=== PATIENT | female | born 1935 | race Caucasian/White ===

== ENCOUNTER 2017-05-10 07:18 | Emergency (ER) | payer OTHER ==
[~2017-05-10] VITALS: Ht 160 cm; Wt 81.7 kg
[~2017-05-10 07:18] MED LIST: Bactrim Ds Tab1 EACH PO; CEPH500 PO; DOCU100 PO; Diclofenac Sod2.5 ML; GLIP10 PO; INSULANPEN SC; LOSA25 PO; METF500 PO; POLTRIOPSO BOTHEYES; PRAV20 PO; PRED1SU BOTHEYES; PRIM50 PO; PROP80ER PO; Zofran8 MG PO
[2017-05-10] MEDS ORDERED: GLIP10 (07:40)
[2017-05-10 08:50] LABS: BASOPHILS ABSOLUTE AUTO 0.02 K/mm3 (0.00-0.23); BASOPHILS PERCENT AUTO 0 % (0-2); EOSINOPHILS PERCENT AUTO 0 % (0-6); Hematocrit 41.7 % (33.0-51.0); Hemoglobin 13.4 g/dL (11.5-16.0); IMMATURE GRAN ABSOLUTE AUTO 0.03 K/mm3 (0.00-0.10); IMMATURE GRAN PERCENT AUTO 1 % (0-1); LYMPHOCYTES PERCENT AUTO 16 % (21-46); MONOCYTES ABSOLUTE AUTO 1.07 K/mm3 (0.16-1.47); MONOCYTES PERCENT AUTO 19 % (4-13); Mean Corpuscular HGB 28.6 pg (26.0-34.0); Mean Corpuscular HGB Conc 32.1 g/dL (31.5-36.5); Mean Corpuscular Volume 89 fL (80-100); Mean Platelet Volume 10.4 fL (9.1-12.4); NEUTROPHILS PERCENT AUTO 64 % (41-73); Platelet Count 205 K/mm3 (150-400); RDW Coefficient Variation 14.4 % (11.7-14.2); RDW Standard Deviation 47.1 fL (35.1-46.3); Red Blood Cell Count 4.68 M/mm3 (3.80-5.20); White Blood Cell Count 5.62 K/mm3 (4.00-11.30)
[2017-05-10 09:04] LABS: Alanine Aminotransfer (ALT/SGP 27 U/L (12-78); Albumin, Blood 3.1 g/dL (3.4-5.0); Albumin/Globulin Ratio 0.7 (0.8-1.8); Alk Phos 86 U/L (50-136); Anion Gap 9 mmol/L (6-16); Aspartate Aminotrans (AST/SGOT 33 U/L (12-37); Bilirubin, Total 0.4 mg/dL (0.1-1.0); Blood Urea Nitrogen 23 mg/dL (8-24); Bun/Creatinine Ratio 20.5 (12.0-20.0); CO2, Blood 26 mmol/L (21-32); Calcium, Blood 8.5 mg/dL (8.5-10.1); Chloride, Blood 101 mmol/L (98-108); Creatinine, Blood 1.12 mg/dL (0.40-1.00); Globulin, Blood 4.2 g/dL (2.2-4.0); Glomerular Filtration Rate 50 (60-); Glucose, Blood 145 mg/dL (70-99); Potassium, Blood 3.9 mmol/L (3.5-5.5); Sodium, Blood 136 mmol/L (136-145); Total Protein, Blood 7.3 g/dL (6.4-8.2); Troponin I <0.015 ng/mL (0.000-0.040)
[2017-05-10 09:23] LABS: Influenza A Negative (NEGATIVE); Influenza B Positive (NEGATIVE)
== END 2017-05-10 12:58 | disposition home or self-care (01) ==
LOC: ER 07:18
PROVIDERS: Emergency Medicine
DX: J10.1 Influenza due to other identified influenza virus with other respiratory manifestations (principal); E86.0 Dehydration; R55 Syncope and collapse; E11.9 Type 2 diabetes mellitus without complications; I10 Essential (primary) hypertension; Z90.710 Acquired absence of both cervix and uterus; Z90.49 Acquired absence of other specified parts of digestive tract; Z90.89 Acquired absence of other organs; Z79.899 Other long term (current) drug therapy; Z79.4 Long term (current) use of insulin
CPT/HCPCS: 71046; 80053; 84484; 85025; 87804; 93005; 93010; 96360; 99284; J7030

== ENCOUNTER → 2019-06-03 | Outpatient (CLI) | payer OTHER ==
[~2019-06-03] MED LIST changes: +GLIP10
== END | disposition home or self-care (01) ==
LOC: LAB UCHC 11:31 → LAB SHORT 11:31
DX: E11.9 Type 2 diabetes mellitus without complications (principal)
CPT/HCPCS: 82043

== ENCOUNTER → 2020-11-02 | Outpatient (CLI) | payer OTHER ==
[2020-11-02 15:46] LABS: Creatinine, Urine Random 91.4 mg/dL (27.00-270.00); Microalb/Creat Ratio UR, Rand 19.475 mg/g (0.000-30.000); Microalbumin, Random Urine 17.8 mg/L (0.000-20.000)
== END | disposition home or self-care (01) ==
LOC: LAB SHORT 12:31
PROVIDERS: Family Medicine
DX: E11.59 Type 2 diabetes mellitus with other circulatory complications (principal)
CPT/HCPCS: 82043; 82570

== ENCOUNTER 2021-06-11 10:28 | Emergency (ER) | payer OTHER ==
[~2021-06-11] VITALS: Ht 162.6 cm; Wt 83.9 kg
[2021-06-11 11:23] LABS: BASOPHILS ABSOLUTE AUTO 0.03 K/mm3 (0.00-0.23); BASOPHILS PERCENT AUTO 1 % (0-2); EOSINOPHILS ABSOLUTE AUTO 0.01 K/mm3 (0.00-0.68); EOSINOPHILS PERCENT AUTO 0 % (0-6); Hematocrit 48.2 % (33.0-51.0); Hemoglobin 15.8 g/dL (11.5-16.0); IMMATURE GRAN ABSOLUTE AUTO 0.03 K/mm3 (0.00-0.10); IMMATURE GRAN PERCENT AUTO 1 % (0-1); LYMPHOCYTES ABSOLUTE AUTO 2.15 K/mm3 (0.84-5.20); LYMPHOCYTES PERCENT AUTO 39 % (21-46); MONOCYTES ABSOLUTE AUTO 0.89 K/mm3 (0.16-1.47); MONOCYTES PERCENT AUTO 16 % (4-13); Mean Corpuscular HGB 29.6 pg (26.0-34.0); Mean Corpuscular HGB Conc 32.8 g/dL (31.5-36.5); Mean Corpuscular Volume 90 fL (80-100); Mean Platelet Volume 10.6 fL (9.1-12.4); NEUTROPHILS ABSOLUTE AUTO 2.34 K/mm3 (1.96-9.15); NEUTROPHILS PERCENT AUTO 43 % (41-73); Platelet Count 231 K/mm3 (150-400); RDW Coefficient Variation 13.9 % (11.7-14.2); RDW Standard Deviation 46.8 fL (35.1-46.3); Red Blood Cell Count 5.34 M/mm3 (3.80-5.20); White Blood Cell Count 5.45 K/mm3 (4.00-11.30)
[2021-06-11 11:31] LABS: Bun/Creatinine Ratio 20.7 (12.0-20.0); Calcium, Blood 9.1 mg/dL (8.5-10.1); Creatinine, Blood 1.21 mg/dL (0.40-1.00); Potassium, Blood 3.7 mmol/L (3.5-5.5)
== END 2021-06-11 12:58 | disposition home or self-care (01) ==
LOC: ER 10:28
PROVIDERS: Emergency Medicine
DX: R55 Syncope and collapse (principal); N28.9 Disorder of kidney and ureter, unspecified; Z91.018 Allergy to other foods; Z79.899 Other long term (current) drug therapy; Z79.4 Long term (current) use of insulin; E11.9 Type 2 diabetes mellitus without complications; I10 Essential (primary) hypertension; E78.5 Hyperlipidemia, unspecified
CPT/HCPCS: 80048; 85025; 93005; 93010; 99284-25; J7030

== ENCOUNTER 2021-06-19 12:04 | Emergency (ER) | payer OTHER ==
[~2021-06-19] VITALS: Ht 162.6 cm; Wt 79.8 kg
[2021-06-19] MEDS ORDERED: BASAGLAR K100 UNIT/3 SC (12:16)
[2021-06-19 12:33] LABS: BASOPHILS ABSOLUTE AUTO 0.01 K/mm3 (0.00-0.23); BASOPHILS PERCENT AUTO 0 % (0-2); EOSINOPHILS PERCENT AUTO 0 % (0-6); Hematocrit 45.2 % (33.0-51.0); Hemoglobin 15.5 g/dL (11.5-16.0); IMMATURE GRAN ABSOLUTE AUTO 0.05 K/mm3 (0.00-0.10); IMMATURE GRAN PERCENT AUTO 1 % (0-1); LYMPHOCYTES ABSOLUTE AUTO 0.86 K/mm3 (0.84-5.20); LYMPHOCYTES PERCENT AUTO 14 % (21-46); MONOCYTES ABSOLUTE AUTO 0.86 K/mm3 (0.16-1.47); MONOCYTES PERCENT AUTO 14 % (4-13); Mean Corpuscular HGB 29.7 pg (26.0-34.0); Mean Corpuscular HGB Conc 34.3 g/dL (31.5-36.5); Mean Corpuscular Volume 87 fL (80-100); NEUTROPHILS ABSOLUTE AUTO 4.44 K/mm3 (1.96-9.15); NEUTROPHILS PERCENT AUTO 71 % (41-73); Platelet Count 252 K/mm3 (150-400); RDW Coefficient Variation 13.3 % (11.7-14.2); RDW Standard Deviation 42.5 fL (35.1-46.3); Red Blood Cell Count 5.22 M/mm3 (3.80-5.20); White Blood Cell Count 6.22 K/mm3 (4.00-11.30)
[2021-06-19 13:04] LABS: Source, Urine Clean Catch
[2021-06-19 13:13] LABS: Appearance, Urine Hazy (Clear); Bilirubin, Urine Neg (Neg); Blood, Urine 1+ (Neg); Color, Urine Yellow (P-Yellow); Glucose Qualitative, Urine 1+ (Neg); Ketones, Urine 3+ (Neg); Leukocyte Esterase, Urine 2+ (Neg); Nitrite, Urine Pos (Neg); Protein, Urine 2+ (Neg); Urobilinogen, Urine 1+ (Normal)
[2021-06-19 13:33] LABS: Albumin/Globulin Ratio 0.7 (0.8-1.8); Bacteria Many /hpf; Bun/Creatinine Ratio 16.7 (12.0-20.0); Calcium, Blood 8.8 mg/dL (8.5-10.1); Creatinine, Blood 0.9 mg/dL (0.40-1.00); Globulin, Blood 4.2 g/dL (2.2-4.0); Potassium, Blood 3.2 mmol/L (3.5-5.5); Red Blood Cells, Urine Rare /hpf (0-2); Squamous Epithelial Cells Mod /hpf (Few); Total Protein, Blood 7.2 g/dL (6.4-8.2)
[2021-06-19] MEDS ORDERED: CEPH500 PO (14:43)
== END 2021-06-19 15:01 | disposition home or self-care (01) ==
LOC: ER 12:04
PROVIDERS: Physician Assistant
DX: N39.0 Urinary tract infection, site not specified (principal); Z91.018 Allergy to other foods; Z79.899 Other long term (current) drug therapy; E11.9 Type 2 diabetes mellitus without complications; I10 Essential (primary) hypertension; E78.5 Hyperlipidemia, unspecified
CPT/HCPCS: 80053; 81001; 82947; 83690; 85025; 87077; 87086; 87186; 96374; 99283; J0696; J7030

== ENCOUNTER → 2021-12-19 | Outpatient (CLI) | payer OTHER ==
[~2021-12-19] MED LIST changes: +BASAGLAR K100 UNIT/3 SC
[2021-12-19 18:30] LABS: CHOL/HDL RATIO 2.4; Cholesterol 171 mg/dL (50-200); HDL Cholesterol 70 mg/dL (>39); LDL/HDL RATIO 1.1; Low Density Lipoprotein Chol 74 mg/dL (0-110); Triglycerides 136 mg/dL (30-160); Very Low Density Lipoprot Chol 27 mg/dL (6-32)
== END | disposition home or self-care (01) ==
LOC: LAB SHORT 17:45
PROVIDERS: Family Medicine
DX: E78.5 Hyperlipidemia, unspecified (principal)
CPT/HCPCS: 80061

== ENCOUNTER → 2023-07-31 | Outpatient (CLI) | payer OTHER ==
[~2023-07-31] MED LIST changes: +ACET325 PO; +ASPI81CH; +BENZ100A PO; +DULCOLAX400 MG/5 M PO; +DURAMORPH0.5 MG/1 M PO; +LOPE2C; +LOSA50 PO
[2023-07-31 16:05] LABS: Source, Urine Voided
[2023-07-31 17:15] LABS: Appearance, Urine Hazy (Clear); Bilirubin, Urine Neg (Neg); Blood, Urine 1+ (Neg); Glucose Qualitative, Urine 4+ (Neg); Ketones, Urine Neg (Neg); Leukocyte Esterase, Urine 3+ (Neg); Nitrite, Urine Pos (Neg); Protein, Urine 2+ (Neg); Specific Gravity, Urine 1.005 (1.003-1.022); Urobilinogen, Urine NORM (Normal)
[2023-07-31 17:28] LABS: Color, Urine Pale Yellow (P-Yellow); Squamous Epithelial Cells Few /hpf (Few)
[2023-07-31 17:29] LABS: Bacteria Many /hpf
== END | disposition home or self-care (01) ==
LOC: LAB 16:02 → LAB SHORT 16:02
PROVIDERS: Family Medicine
DX: N39.0 Urinary tract infection, site not specified (principal)
CPT/HCPCS: 81001; 87077; 87086; 87186

== ENCOUNTER → 2024-01-11 | Outpatient (CLI) | payer OTHER ==
[2024-01-12 14:09] LABS: Bilirubin, Urine Neg (Neg); Blood, Urine Neg (Neg); Glucose Qualitative, Urine 1+ (Neg); Ketones, Urine Neg (Neg); Leukocyte Esterase, Urine 2+ (Neg); Nitrite, Urine Neg (Neg); Protein, Urine Neg (Neg); Specific Gravity, Urine 1.015 (1.003-1.022); Urobilinogen, Urine NORM (Normal)
[2024-01-12 14:21] LABS: Appearance, Urine Clear (Clear); Color, Urine Pale Yellow (P-Yellow)
[2024-01-12 14:23] LABS: Bacteria Many /hpf; Red Blood Cells, Urine 0-2 /hpf (0-2); Squamous Epithelial Cells Few /hpf (Few)
== END | disposition home or self-care (01) ==
LOC: LAB SHORT 19:00 → LAB 19:00
PROVIDERS: Family Medicine
DX: N39.0 Urinary tract infection, site not specified (principal)
CPT/HCPCS: 81001; 87077; 87086; 87186

== ENCOUNTER 2024-07-23 07:18 | Observation (INO) | payer OTHER ==
[~2024-07-23] VITALS: Ht 162.6 cm; Wt 74.2 kg
[~2024-07-23 07:18] MED LIST changes: -ASPI81CH; +Aspir 8181 MG PO; -LOPE2C; +LOPE2C PO
[2024-07-23] MEDS ORDERED: PRAVASTATIN SOD20 MG PO (07:28)
[2024-07-23] MEDS ORDERED: OLANZAPINE ODT512 PO (07:28)
[2024-07-23] MEDS ORDERED: EUCERIN ADVANC454 GM TP (07:29)
[2024-07-23 08:24] LABS: BASOPHILS ABSOLUTE AUTO 0.09 K/mm3 (0.00-0.23); BASOPHILS PERCENT AUTO 1 % (0-2); EOSINOPHILS ABSOLUTE AUTO 0.19 K/mm3 (0.00-0.68); EOSINOPHILS PERCENT AUTO 3 % (0-6); Hematocrit 44.3 % (33.0-51.0); Hemoglobin 14.5 g/dL (11.5-16.0); IMMATURE GRAN ABSOLUTE AUTO 0.08 K/mm3 (0.00-0.10); IMMATURE GRAN PERCENT AUTO 1 % (0-1); LYMPHOCYTES ABSOLUTE AUTO 2.62 K/mm3 (0.84-5.20); LYMPHOCYTES PERCENT AUTO 37 % (21-46); MONOCYTES ABSOLUTE AUTO 0.72 K/mm3 (0.16-1.47); MONOCYTES PERCENT AUTO 10 % (4-13); Mean Corpuscular HGB Conc 32.7 g/dL (31.5-36.5); Mean Corpuscular Volume 92 fL (80-100); Mean Platelet Volume 9.9 fL (9.1-12.4); NEUTROPHILS ABSOLUTE AUTO 3.44 K/mm3 (1.96-9.15); NEUTROPHILS PERCENT AUTO 48 % (41-73); Platelet Count 310 K/mm3 (150-400); RDW Coefficient Variation 13.1 % (11.7-14.2); RDW Standard Deviation 43.7 fL (35.1-46.3); Red Blood Cell Count 4.83 M/mm3 (3.80-5.20); White Blood Cell Count 7.14 K/mm3 (4.00-11.30)
[2024-07-23 08:52] LABS: Albumin, Blood 3.2 g/dL (3.4-5.0); Albumin/Globulin Ratio 0.8 (0.8-1.8); Bilirubin, Total 0.6 mg/dL (0.1-1.0); Bun/Creatinine Ratio 17.6 (12.0-20.0); Calcium, Blood 9.6 mg/dL (8.5-10.1); Creatinine, Blood 0.8 mg/dL (0.40-1.00); Potassium, Blood 4.1 mmol/L (3.5-5.5); Total Protein, Blood 7.2 g/dL (6.4-8.2)
[2024-07-23] MEDS ORDERED: Nystatin/Triamcinolone Ointment 15 GM TOP ONE (10:50)
[2024-07-23 10:55] LABS: Source, Urine Clean Catch
[2024-07-23 10:58] LABS: Appearance, Urine Hazy (Clear); Bilirubin, Urine Neg (Neg); Blood, Urine 1+ (Neg); Glucose Qualitative, Urine 2+ (Neg); Ketones, Urine Neg (Neg); Leukocyte Esterase, Urine 3+ (Neg); Nitrite, Urine Pos (Neg); Protein, Urine 1+ (Neg); Specific Gravity, Urine 1.005 (1.003-1.022); Urobilinogen, Urine NORM (Normal)
[2024-07-23 11:10] LABS: Color, Urine Yellow (P-Yellow)
[2024-07-23 11:13] LABS: Bacteria Mod /hpf; Red Blood Cells, Urine 0-2 /hpf (0-2); Squamous Epithelial Cells Few /hpf (Few)
[2024-07-23] MEDS ORDERED: CefTRIAXone Sodium 1,000 MG in NS 100 ML IV ONE (11:30)
[2024-07-23] MEDS ORDERED: NS 1,000 ML BAG IV SCH (11:30)
[2024-07-23] MEDS ORDERED: Polyethylene Glycol 3350 17 gm PO PRN (12:55)
[2024-07-23] MEDS ORDERED: Acetaminophen 500 MG Tab PO PRN (12:55)
[2024-07-23] MEDS ORDERED: Insulin Human Lispro 100 Units/ML 3ML Syringe SC SCH (16:30)
--- NOTE | 2024-07-23 17:02 | NUR ---
ADMIT PT ADMITTED TO UNIT FROM ER. ORIENTED TO UNIT, ARCHANA CARE COMPLETED. NYSTATIN CREAM APPLIED TO ABD FOLD. PHOTOS TAKEN OF ABD FOLD AND GLUTEAL CLEFT. 2ND RN YUMI WALKER RN VERIFIED SKIN. NO PRESSURE ULCERS NOTED. WATER PROVIDED. PT CONT/INCONT. AMBULATED TO THE BATHROOM ONCE WITH GB & WALKER. PT VERY SHAKY, BSC SET UP FOR FUTURE USE TO HELP PREVENT FALLS DURING AMBULATION. CALL LIGHT IN REACH. BED ALARM IN PLACE.
[2024-07-23] MEDS ORDERED: LORA.5 PO (17:48)
[2024-07-23] MEDS ORDERED: ZINC OXIDE57 GM TOP (17:49)
[2024-07-23] MEDS ORDERED: BISA10S PR (17:50)
[2024-07-23] MEDS ORDERED: ALUM-MAG HYDROX30 M1 PO (17:51)
[2024-07-23 20:33] VITALS: BP 166/68
[2024-07-23] MEDS ORDERED: OLANZapine ODT 5 MG Tab MM SCH (21:00)
--- NOTE | 2024-07-23 23:19 | NUR ---
NEW T-ORDER FROM THE ON-CALL HOSPITALIST DR. LUNDBERG: - MELATONIN 5MG PO QHS. ENTERED TO [employer], SEE EMAR.
[2024-07-23] MEDS ORDERED: Melatonin 5 MG Tablet PO ONE (23:20)
[2024-07-23 23:40] VITALS: BP 174/87
--- NOTE | 2024-07-24 03:56 | NUR ---
SHIFT SUMMARY @HS PT AGITATED AND ATTEMPTING TO AMBULATE W/O ASSISTANCE. GETTING UP TO BEDSIDE COMMODE FREQUENTLY. BED ALARM FOR SAFETY. @HS 1:1 SITTER D/T HIGH FALL RISK AND PT IS CONFUSED, UNABLE TO REORIENT. HX FALLS AND SYNCOPE. PT REPORTS NOT GETTING COMFORTABLE OR NOT ABLE TO GET SLEEP. NEW ORDER FOR MELATONIN 5MG QHS RECEIVED FROM THE ON-CALL HOSPITALIST. EFFECTIVE. PT IS A/O X2, ABLE TO MAKE HER NEEDS KNOWN. PT DENIES PAIN. PUREWICK IN PLACE, DRAINING LIGHT YELLOW URINE>600MLS. PT IS INCONTINENT, ATTENDS IN PLACE. BED AT THE LOWEST POSITION, CALL LIGHT W/I REACH.
[2024-07-24 04:44] VITALS: BP 128/54
[2024-07-24 05:29] LABS: Hematocrit 40.5 % (33.0-51.0); Hemoglobin 13.6 g/dL (11.5-16.0); Mean Corpuscular HGB 30.4 pg (26.0-34.0); Mean Corpuscular HGB Conc 33.6 g/dL (31.5-36.5); Mean Corpuscular Volume 91 fL (80-100); Mean Platelet Volume 10.1 fL (9.1-12.4); Platelet Count 269 K/mm3 (150-400); RDW Standard Deviation 43.1 fL (35.1-46.3); Red Blood Cell Count 4.47 M/mm3 (3.80-5.20); White Blood Cell Count 7.49 K/mm3 (4.00-11.30)
[2024-07-24 05:58] LABS: Albumin, Blood 2.8 g/dL (3.4-5.0); Anion Gap 10 mmol/L (3-11); Blood Urea Nitrogen 14 mg/dL (8-24); Bun/Creatinine Ratio 17.2 (12.0-20.0); CO2, Blood 25 mmol/L (21-32); Chloride, Blood 107 mmol/L (98-108); Creatinine, Blood 0.81 mg/dL (0.40-1.00); Glomerular Filtration Rate 70 (60-); Glucose, Blood 251 mg/dL (70-99); Magnesium, Blood 1.9 mg/dL (1.6-2.4); Potassium, Blood 4.1 mmol/L (3.5-5.5); Sodium, Blood 138 mmol/L (136-145)
[2024-07-24 07:21] VITALS: BP 117/54
[2024-07-24] MEDS ORDERED: Cholecalciferol 1000 Unit Tablet (=25MCG) PO SCH (09:00)
[2024-07-24] MEDS ORDERED: Losartan Potassium 50 MG Tab PO SCH (09:00)
[2024-07-24] MEDS ORDERED: Enoxaparin 40 MG/0.4 ML SYR SC SCH (09:00)
[2024-07-24] MEDS ORDERED: OLANZapine ODT 5 MG Tab MM SCH (10:30)
[2024-07-24] MEDS ORDERED: Mag Hydrox/AL Hydrox/Simeth 30 ML UDC PO PRN (11:40)
[2024-07-24 11:46] VITALS: BP 137/66
[2024-07-24] MEDS ORDERED: NS 250 ML IV PRN (11:50)
[2024-07-24] MEDS ORDERED: CefTRIAXone Sodium 1,000 MG in NS 100 ML IV SCH (12:00)
[2024-07-24] MEDS ORDERED: Insulin Glargine-Yfgn 100 Unit/mL 3 ML SYR SC SCH (12:00)
[2024-07-24 16:12] VITALS: BP 144/72
--- NOTE | 2024-07-24 17:30 | NUR ---
SHIFT SUMMARY PT HAS A 1:1 SITTER T/O SHIFT TO HELP WITH IMPULSIVITIY AND FALL PREVENTION. PT IRRITABLE AND UNCOOPERATIVE THIS MORNING. DR. MARTELL NOTIFIED THAT PT NORMALLY TAKES ZYPREXA BID AT HOME. ORDER WAS CHANGED TO REFLECT THIS AND ZYPREXA WAS GIVEN, PT MUCH MORE COOPERATIVE THE REST THE DAY AFTER THIS. PT SHOWERED AND AGREEABLE TO TAKING OTHER MEDICATIONS AFTERWARDS. PT WORKED WITH PHYSICAL THERAPY, MODERATE 1P ASSIST TO WHEELCHAIR. AMBULATION IS UNSAFE FOR THIS PATIENT PER PHYSICAL THERAPIST. NO OTHER ACUTE CHANGES IN ASSESSMENT AT THIS TIME. ABD FOLD CLEANED & NYSTATIN CREAM APPLIED, SILVER SHEET PLACED IN FOLD WELL TO HELP WITH MOISTURE. VS REVIEWED. CALL LIGHT IN REACH. ALARMS IN USE.
[2024-07-24 19:17] VITALS: BP 142/71
[2024-07-24] MEDS ORDERED: Melatonin 5 MG Tablet PO SCH (21:00)
[2024-07-25 01:01] VITALS: BP 128/61
--- NOTE | 2024-07-25 03:45 | NUR ---
SHIFT SUMMARY PT CONTINUES WITH 1:1 SITTER D/T IMPULSITIVITY AND FALL RISK. PT IS CONFUSED, A/O X2-3, AND SOMEWHAT UNCOOPERATIVE WITH CARE. EASILY AGITATED. PUREWICK WAS IN PLACE BUT PT REFUSED LATER DURING THIS SHIFT. URINE IS LIGHT YELLOW IN COLOR. 1-PERSON ASSIST TO THE COMMODE. HS BG 288. HS SCHEDULED MELATONIN AND ZYPREXA ADMINISTERED, PT AGREEABLE FOR MEDS AT HS. BED AT THE LOWEST POSITION, CALL LIGHT W/I REACH.
[2024-07-25 05:46] VITALS: BP 153/84
[2024-07-25 06:16] LABS: Hematocrit 40.5 % (33.0-51.0); Hemoglobin 13.4 g/dL (11.5-16.0); Mean Corpuscular HGB 30.5 pg (26.0-34.0); Mean Corpuscular HGB Conc 33.1 g/dL (31.5-36.5); Mean Corpuscular Volume 92 fL (80-100); Mean Platelet Volume 10.4 fL (9.1-12.4); Platelet Count 271 K/mm3 (150-400); RDW Coefficient Variation 13.2 % (11.7-14.2); RDW Standard Deviation 44.7 fL (35.1-46.3); White Blood Cell Count 8.02 K/mm3 (4.00-11.30)
[2024-07-25 06:26] LABS: Albumin, Blood 2.7 g/dL (3.4-5.0); Anion Gap 9 mmol/L (3-11); Blood Urea Nitrogen 19 mg/dL (8-24); Bun/Creatinine Ratio 21.6 (12.0-20.0); CO2, Blood 28 mmol/L (21-32); Calcium, Blood 8.9 mg/dL (8.5-10.1); Chloride, Blood 107 mmol/L (98-108); Creatinine, Blood 0.88 mg/dL (0.40-1.00); Glomerular Filtration Rate 63 (60-); Glucose, Blood 260 mg/dL (70-99); Magnesium, Blood 1.8 mg/dL (1.6-2.4); Phosphorus, Blood 3.1 mg/dL (2.5-4.9); Potassium, Blood 4.5 mmol/L (3.5-5.5); Sodium, Blood 139 mmol/L (136-145)
[2024-07-25 07:26] VITALS: BP 129/77
[2024-07-25] MEDS ORDERED: CEPH500 PO (11:58)
[2024-07-25] MEDS ORDERED: VISBIOME 112.51 EACH PO (11:58)
--- NOTE | 2024-07-25 15:04 | NUR ---
DISCHARGE PT DISCHARGED VIA W/C. PT BELONGINGS SENT WITH HER. CARE ONGOING.
== END 2024-07-25 15:04 | disposition home or self-care (01) ==
LOC: ER 07:18 → ERHOLD 07:19 → MEDS 07:19
PROVIDERS: Student in an Organized Health Care Education/Training Program; ADMIT Internal Medicine
DX: G92.8 Other toxic encephalopathy (principal); N39.0 Urinary tract infection, site not specified; F02.A0 Dementia in other diseases classified elsewhere, mild, without behavioral disturbance, psychotic disturbance, mood disturbance, and anxiety; E11.65 Type 2 diabetes mellitus with hyperglycemia; I10 Essential (primary) hypertension; E78.5 Hyperlipidemia, unspecified; Z87.891 Personal history of nicotine dependence; Z91.018 Allergy to other foods; Z88.0 Allergy status to penicillin; Z88.8 Allergy status to other drugs, medicaments and biological substances; Z79.82 Long term (current) use of aspirin; Z79.899 Other long term (current) drug therapy
CPT/HCPCS: 36415; 70450; 72125; 80053; 80069; 81001; 82550; 82947; 83605; 83735; 85025; 85027; 87040; 87077; 87086; 87186; 93005; 93010; 96361; 96365; 96366; 96372; 97110; 97116; 97129; 97161; 97165; 97530; 97535; 99285-25; A6590; A9270; G0378; J0696; J1650; J1815; J7030; J7050

== ENCOUNTER → 2024-12-19 | Outpatient (CLI) | payer OTHER ==
[~2024-12-19] MED LIST changes: +ALUM-MAG HYDROX30 M1 PO; +BISA10S PR; +EUCERIN ADVANC454 GM TP; +LORA.5 PO; +OLANZAPINE ODT512 PO; +PRAVASTATIN SOD20 MG PO; +VISBIOME 112.51 EACH PO; +ZINC OXIDE57 GM TOP
[2024-12-19 11:31] LABS: Source, Urine Clean Catch
[2024-12-19 12:39] LABS: Bilirubin, Urine Neg (Neg); Color, Urine Yellow (P-Yellow); Glucose Qualitative, Urine 4+ (Neg); Ketones, Urine Neg (Neg); Leukocyte Esterase, Urine 3+ (Neg); Protein, Urine 2+ (Neg); Specific Gravity, Urine 1.010 (1.003-1.022); Urobilinogen, Urine NORM (Normal)
[2024-12-19 12:45] LABS: Red Blood Cells, Urine TNTC /hpf (0-2); White Blood Cells, Urine TNTC /hpf (0-5)
== END ==
LOC: LAB 11:28 → LAB SHORT 11:28
PROVIDERS: Nurse Practitioner Family
DX: N39.0 Urinary tract infection, site not specified (principal)
CPT/HCPCS: 81001; 87077; 87086; 87186

== ENCOUNTER 2025-01-06 22:05 | Emergency (ER) | payer OTHER ==
[~2025-01-06] VITALS: Ht 162.6 cm; Wt 81.7 kg
[2025-01-07 01:15] VITALS: BP 135/76
[2025-01-07] MEDS ORDERED: NYSTATIN15 GM TOP (01:26)
== END 2025-01-07 03:32 | disposition home or self-care (01) ==
LOC: ER 22:05
DX: M54.2 Cervicalgia (principal); E04.1 Nontoxic single thyroid nodule; W18.30XA Fall on same level, unspecified, initial encounter
CPT/HCPCS: 70450; 72125; 93005; 93010; 99284-25; A6590; A9270

== ENCOUNTER → 2025-01-09 | Outpatient (CLI) | payer OTHER ==
[~2025-01-09] MED LIST changes: +NYSTATIN15 GM TOP
[2025-01-09 13:08] LABS: Source, Urine Clean Catch
[2025-01-09 14:12] LABS: Bilirubin, Urine Neg (Neg); Color, Urine Yellow (P-Yellow); Glucose Qualitative, Urine 1+ (Neg); Ketones, Urine Neg (Neg); Leukocyte Esterase, Urine 3+ (Neg); Protein, Urine 3+ (Neg); Specific Gravity, Urine 1.010 (1.003-1.022); Urobilinogen, Urine NORM (Normal)
[2025-01-09 14:26] LABS: Red Blood Cells, Urine 25-50 /hpf (0-2); White Blood Cells, Urine TNTC /hpf (0-5)
== END | disposition home or self-care (01) ==
LOC: LAB 13:03 → LAB SHORT 13:03
PROVIDERS: Nurse Practitioner Family
DX: N39.0 Urinary tract infection, site not specified (principal)
CPT/HCPCS: 81001; 87077; 87086; 87186

== ENCOUNTER 2025-01-22 21:02 | Emergency (ER) | payer OTHER ==
[~2025-01-22] VITALS: Ht 165.1 cm; Wt 95.2 kg
[2025-01-22] MEDS ORDERED: OxyCODONE 5 mg/Acetamin 325 mg TABLET PO ONE (21:55)
[2025-01-22 23:00] VITALS: BP 107/59
[2025-01-23] MEDS ORDERED: TAMS.4ER PO (15:14)
== END 2025-01-22 23:15 | disposition home or self-care (01) ==
LOC: ER 21:02
DX: M25.551 Pain in right hip (principal); M25.552 Pain in left hip; Z79.84 Long term (current) use of oral hypoglycemic drugs; Z91.81 History of falling; Z79.82 Long term (current) use of aspirin; Z79.899 Other long term (current) drug therapy
CPT/HCPCS: 73522; 99283-25; A9270

== ENCOUNTER 2025-01-23 15:00 | Emergency (ER) | payer OTHER ==
[~2025-01-23] VITALS: Ht 165.1 cm; Wt 95.2 kg
[2025-01-23] MEDS ORDERED: Ketorolac Tromethamine 15mg Vial IV ONE (15:10)
[2025-01-23] MEDS ORDERED: TAMS.4ER PO (15:14)
[2025-01-23] MEDS ORDERED: OxyCODONE 10/Acetamin 325 TABLET PO ONE (16:30)
[2025-01-23] MEDS ORDERED: Ondansetron HCl 2 MG / ML 2ML Vial IV ONE (16:35)
[2025-01-23] MEDS ORDERED: Morphine Sulfate 4 MG/1 ML Injection IV ONE (16:35)
[2025-01-23 16:57] LABS: BASOPHILS ABSOLUTE AUTO 0.03 K/mm3 (0.00-0.23); BASOPHILS PERCENT AUTO 0 % (0-2); EOSINOPHILS ABSOLUTE AUTO 0.00 K/mm3 (0.00-0.68); EOSINOPHILS PERCENT AUTO 0 % (0-6); Hematocrit 41.1 % (33.0-51.0); Hemoglobin 14.1 g/dL (11.5-16.0); IMMATURE GRAN ABSOLUTE AUTO 0.10 K/mm3 (0.00-0.10); IMMATURE GRAN PERCENT AUTO 1 % (0-1); LYMPHOCYTES ABSOLUTE AUTO 1.93 K/mm3 (0.84-5.20); LYMPHOCYTES PERCENT AUTO 21 % (21-46); MONOCYTES ABSOLUTE AUTO 0.96 K/mm3 (0.16-1.47); MONOCYTES PERCENT AUTO 10 % (4-13); Mean Corpuscular HGB Conc 34.3 g/dL (31.5-36.5); Mean Corpuscular Volume 84 fL (80-100); NEUTROPHILS ABSOLUTE AUTO 6.34 K/mm3 (1.96-9.15); NEUTROPHILS PERCENT AUTO 68 % (41-73); NRBC ABSOLUTE 0.00 K/mm3 (0.00-0.02); NRBC Auto 0.0 /100 WBC (0.0-0.2); Platelet Count 349 K/mm3 (150-400); RDW Coefficient Variation 13.9 % (11.7-14.2); RDW Standard Deviation 42.8 fL (35.1-46.3)
[2025-01-23 17:40] LABS: Alanine Aminotransfer (ALT/SGP 21.0 U/L (12-78); Albumin, Blood 3.2 g/dL (3.4-5.0); Albumin/Globulin Ratio 0.8 (0.8-1.8); Anion Gap 13.0 mmol/L (3-11); Aspartate Aminotrans (AST/SGOT 18.0 U/L (12-37); Bilirubin, Total 1.1 mg/dL (0.1-1.0); Blood Urea Nitrogen 19.0 mg/dL (8-24); CO2, Blood 21.0 mmol/L (21-32); Calcium, Blood 8.9 mg/dL (8.5-10.1); Chloride, Blood 101.0 mmol/L (98-108); Creatinine, Blood 0.79 mg/dL (0.40-1.00); Globulin, Blood 4.0 g/dL (2.2-4.0); Glucose, Blood 232.0 mg/dL (70-99); Magnesium, Blood 1.8 mg/dL (1.6-2.4); Potassium, Blood 3.6 mmol/L (3.5-5.5); Sodium, Blood 131.0 mmol/L (136-145); Total Protein, Blood 7.2 g/dL (6.4-8.2)
[2025-01-23 18:26] LABS: Source, Urine Clean Catch
[2025-01-23 18:31] LABS: Bilirubin, Urine Neg (Neg); Color, Urine Yellow (P-Yellow); Glucose Qualitative, Urine 2+ (Neg); Ketones, Urine 2+ (Neg); Leukocyte Esterase, Urine Neg (Neg); Protein, Urine 2+ (Neg); Specific Gravity, Urine 1.010 (1.003-1.022); Urobilinogen, Urine NORM (Normal)
[2025-01-23 18:42] LABS: Red Blood Cells, Urine 0-2 /hpf (0-2); White Blood Cells, Urine 0-2 /hpf (0-5)
[2025-01-23 19:12] VITALS: BP 124/72
== END 2025-01-23 19:50 | disposition home or self-care (01) ==
LOC: ER 15:00
PROVIDERS: Emergency Medicine
DX: M25.552 Pain in left hip (principal); M25.551 Pain in right hip; E11.9 Type 2 diabetes mellitus without complications; I10 Essential (primary) hypertension
CPT/HCPCS: 72192; 74177; 80053; 81001; 83690; 83735; 85025; 96374-59; 96375; 99284-25; A9270; J1885; J2270; J2405; P9612; Q9967

== ENCOUNTER → 2025-02-22 | Outpatient (CLI) | payer OTHER ==
[~2025-02-22] MED LIST changes: +TAMS.4ER PO
[2025-02-22 10:58] LABS: Source, Urine Clean Catch
[2025-02-22 12:13] LABS: Bilirubin, Urine Neg (Neg); Glucose Qualitative, Urine Neg (Neg); Ketones, Urine Neg (Neg); Leukocyte Esterase, Urine 3+ (Neg); Protein, Urine 2+ (Neg); Specific Gravity, Urine 1.010 (1.003-1.022); Urobilinogen, Urine NORM (Normal)
[2025-02-22 12:29] LABS: Color, Urine Pale Yellow (P-Yellow)
[2025-02-22 12:30] LABS: White Blood Cells, Urine TNTC /hpf (0-5)
== END ==
LOC: LAB SHORT 07:30 → LAB 07:30
PROVIDERS: Nurse Practitioner Family
DX: N39.0 Urinary tract infection, site not specified (principal)
CPT/HCPCS: 81001; 87077; 87086; 87186

== ENCOUNTER 2025-04-04 16:41 | Emergency (ER) | payer OTHER ==
[~2025-04-04] VITALS: Ht 162.6 cm; Wt 81.7 kg
[2025-04-04] MEDS ORDERED: NS 1,000 ML IV SCH (17:45)
[2025-04-04 18:14] LABS: BASOPHILS ABSOLUTE AUTO 0.06 K/mm3 (0.00-0.23); BASOPHILS PERCENT AUTO 1 % (0-2); EOSINOPHILS ABSOLUTE AUTO 0.18 K/mm3 (0.00-0.68); EOSINOPHILS PERCENT AUTO 2 % (0-6); Hematocrit 41.6 % (33.0-51.0); Hemoglobin 13.8 g/dL (11.5-16.0); IMMATURE GRAN ABSOLUTE AUTO 0.11 K/mm3 (0.00-0.10); IMMATURE GRAN PERCENT AUTO 1 % (0-1); LYMPHOCYTES ABSOLUTE AUTO 2.29 K/mm3 (0.84-5.20); LYMPHOCYTES PERCENT AUTO 20 % (21-46); MONOCYTES ABSOLUTE AUTO 1.23 K/mm3 (0.16-1.47); MONOCYTES PERCENT AUTO 11 % (4-13); Mean Corpuscular HGB Conc 33.2 g/dL (31.5-36.5); Mean Corpuscular Volume 89 fL (80-100); NEUTROPHILS ABSOLUTE AUTO 7.34 K/mm3 (1.96-9.15); NEUTROPHILS PERCENT AUTO 66 % (41-73); NRBC ABSOLUTE 0.00 K/mm3 (0.00-0.02); NRBC Auto 0.0 /100 WBC (0.0-0.2); Platelet Count 324 K/mm3 (150-400); RDW Coefficient Variation 14.5 % (11.7-14.2); RDW Standard Deviation 46.7 fL (35.1-46.3)
[2025-04-04 18:40] LABS: Anion Gap 8.0 mmol/L (3-11); Blood Urea Nitrogen 17.0 mg/dL (8-24); CO2, Blood 26.0 mmol/L (21-32); Calcium, Blood 9.1 mg/dL (8.5-10.1); Chloride, Blood 108.0 mmol/L (98-108); Creatinine, Blood 0.72 mg/dL (0.40-1.00); Glucose, Blood 155.0 mg/dL (70-99); Magnesium, Blood 1.8 mg/dL (1.6-2.4); Potassium, Blood 4.2 mmol/L (3.5-5.5); Sodium, Blood 138.0 mmol/L (136-145); Thyroid Stimulating Hormone 1.48 uIU/mL (0.360-4.800)
[2025-04-04 20:45] VITALS: BP 106/66
== END 2025-04-04 23:28 | disposition home or self-care (01) ==
LOC: ER 16:41
PROVIDERS: Emergency Medicine
DX: R06.02 Shortness of breath (principal); I10 Essential (primary) hypertension; E11.9 Type 2 diabetes mellitus without complications
CPT/HCPCS: 71045; 71260; 80048; 82947; 83735; 83880; 84439; 84443; 84484; 85025; 85379; 93005; 93010; 96360-59; 99285-25; J7030; Q9967

== ENCOUNTER → 2025-04-05 | Outpatient (CLI) | payer OTHER ==
[2025-04-05 11:56] LABS: Bilirubin, Urine Neg (Neg); Color, Urine Yellow (P-Yellow); Glucose Qualitative, Urine Neg (Neg); Ketones, Urine Neg (Neg); Leukocyte Esterase, Urine 3+ (Neg); Protein, Urine 1+ (Neg); Specific Gravity, Urine 1.010 (1.003-1.022); Urobilinogen, Urine NORM (Normal)
[2025-04-05 12:17] LABS: White Blood Cells, Urine 50-100 /hpf (0-5)
== END | disposition home or self-care (01) ==
LOC: LAB 07:50 → LAB SHORT 07:50
PROVIDERS: Nurse Practitioner Family
DX: N39.0 Urinary tract infection, site not specified (principal)
CPT/HCPCS: 81001; 87077; 87086; 87186